=== PATIENT | female | born 1955 | race Caucasian/White ===

== ENCOUNTER → 2020-03-24 11:39 | Outpatient (CLI) | payer OTHER, SELFPAY ==
--- NOTE | 2020-03-24 14:51 | STRESSREP_ITS ---
Stress Test Report Date: 03/24/2020 Procedure: Exercise tolerance test Indications: Dyspnea on exertion Consent: Per the patient Procedure: The patient exercised on a Yobani protocol for 4 minutes and 59 seconds achieving a peak heart rate of 153 bpm (98 % predicted maximal heart rate) with a peak blood pressure 158/80 mmHg and a peak MET capacity of approximately 6.9 mET's. The baseline ECG demonstrated normal sinus rhythm. The peak exercise ECG demonstrated upsloping ST depressions in the inferior and lateral leads which is not diagnostic of ischemia. Patient did not have significant ischemic changes. [There were no cardiac dysrhythmias pretest, during exercise, or recovery]. The functional capacity was considered average for age. The patient had no complaint of chest discomfort during exercise or recovery. The examination was discontinued secondary to shortness of breath. Impression: 1. Technically adequate (percent predicted maximal heart rate greater than 85%) exercise tolerance test 2. Stress test is negative for exercise-induced chest pain. 3. Stress test test is negative for exercise-induced EKG changes of ischemia. 4. Functional capacity is average for age This note was generated with MyRepublic[employer] software. It may contain incorrect words, spelling, and punctuation that were not noted in checking the note before signing.
== END ==
PROVIDERS: PCP Family Medicine; Referring Provider Family Medicine; Visit Provider Family Medicine
DX: R06.09 Other forms of dyspnea (principal)
CPT/HCPCS: 93017

== ENCOUNTER → 2021-08-17 07:31 | Outpatient (CLI) | payer MEDICARE, OTHER, SELFPAY ==
--- NOTE | 2021-08-17 07:40 | RAD_ITS ---
INDICATION: DYSPHAGIA GERD EXAMINATION/TECHNIQUE: oral contrast and gas bubbles were administered to the patient. Total Fluoroscopic Time: 111 seconds. number of Fluoroscopic Images: 18 Radiation dosage index: 32.91 mGy COMPARISON: None. FINDINGS: No masses or strictures are identified. There is no hiatal hernia. The mucosal pattern is unremarkable. There is normal motility. Mild to moderate gastroesophageal reflux was elicited. RAD/Esophagus Single Contrast IMPRESSION: Unremarkable esophageal structure and function. Mild to moderate gastroesophageal reflux was elicited. Electronically Signed: Terrence Ferrell MD at 8:31 EST Tel , Service support ,
== END ==
PROVIDERS: PCP Family Medicine; Referring Provider Otolaryngology; Visit Provider Otolaryngology
DX: R13.10 Dysphagia, unspecified (principal); K21.9 Gastro-esophageal reflux disease without esophagitis
CPT/HCPCS: 74220

== ENCOUNTER → 2023-11-22 | Outpatient (CLI) | payer MEDICARE, OTHER, SELFPAY ==
--- NOTE | 2023-11-22 | CYSPIN_PTH ---
PATIENT: ALANNAH HALL LOC: [facility] U#:[id number] AGE/SX: 68/F ROOM: RE11/22/[address]: Dr. Brook Sauceda MD : 1955 BED: DIS: 11/22/2023 SPEC #: [id number] RECD: 11/25/23 10:11 STATUS: AMADA COREY #: [id number] AUDELIA: 11/22/23 00:[address]: Brook Sauceda DEPT: CYTOLOGY RECD BY: Mikhail Shannon ENTERED: 11/25/23 10:12 SP TYPE: CYSPIN FL OTHR DR: Dr. Brenden Kapadia MD Tissues: Urine Procedures: Pap Stain (control) Special Stain Group II Cytospin Fluid HEADER OPERATION: Not noted PRE-OP DIAGNOSIS: Gross hematuria TISSUE SUBMITTED: Urine for cytology DIAGNOSIS CYTOLOGY Urine for cytology (cytospin): Negative for high-grade urothelial carcinoma (NHGUC), Genevieve System Category II. /mr 11/25/23 COMMENT The Genevieve System for urine cytology diagnostic categorization was used in the evaluation of this case. CYTOLOGY STUDY Slides are reviewed. CYTOLOGY GROSS Received is 40 ml of gold cloudy fluid labeled with the patient's name and and designated per the requisition as urine. Submitted for cytology preparation. mr 11/25/23 TC:4 CPT: 46605
[2023-11-26 10:33] LABS: Cytology, Body Fluid / CSF SEE PATH REPORT
== END | disposition home or self-care (01) ==
PROVIDERS: PCP Family Medicine; Referring Provider Urology; Visit Provider Urology
DX: R31.0 Gross hematuria (principal)
CPT/HCPCS: 88108; 88313

== ENCOUNTER → 2024-10-09 | Outpatient (CLI) | payer MEDICARE, OTHER, SELFPAY ==
[2024-10-09 10:14] LABS: Absolute Lymphocyte Count 1.76 X10^3/uL (0.83-4.51); Absolute Neutrophil Count 4.3 X10^3/uL (2.0-7.7); Basophil# 0.05 X10^3/uL; Basophil% 0.7 % (0-1); Eosinophils% 2.9 % (0-5); Hematocrit 43.3 % (37-47); Hemoglobin 14.3 g/dL (12.0-15.0); Lymphocyte # 1.76 X10^3/ul (0.83-4.51); Lymphocyte % 25.8 % (19-41); Mean Corpuscular Hgb 29.5 pg (27.0-32.0); Mean Corpuscular Volume 89.5 fL (81-99); Mean Platelet Vol. 9.7 fl (6.2-12.0); Monocyte# 0.47 X10^3/uL; Monocyte% 6.9 % (0-10); NRBC Flagged by Analyzer 0 % (0-5); Neutrophil # 4.31 X10^3/uL (2.7-7.7); Neutrophil % 63.1 % (47-70); Platelet Count 272 K/mm3 (150-450); RBC Distribution Width CV 12.3 % (11.6-14.6); RBC Distribution Width SD 40.7 fl (35.1-43.9); Red Blood Count 4.84 M/mm3 (4.2-5.4); White Blood Count 6.8 K/mm3 (4.4-11.0)
[2024-10-09 10:44] LABS: Hemoglobin A1c 5.7 % (3.8-5.6)
[2024-10-09 11:00] LABS: ALB/GLOB Ratio 0.9 RATIO (0.9-2.4); AST(SGOT) 18 U/L (15-37); Alanine Aminotransfer ALT/SGPT 25 U/L (13-56); Albumin, Serum 3.6 g/dL (3.2-5.0); Alkaline Phosphatase 87 U/L (45-117); Anion Gap 7 (5-15); BUN 11 mg/dL (7-18); BUN/Creat Ratio 14.1 RATIO (10-20); Calcium,Total 9.1 mg/dL (8.5-10.1); Chloride 106 mmol/L (98-107); Cholesterol 223 mg/dL (200); Creatinine, Serum 0.78 mg/dL (0.55-1.02); EST Glomerular Filtration Rate 78 mL/min (>60); Est Glom Filt Rate - Afr Amer 94 mL/min (>60); Globulin 3.8 g/dL (2.2-4.2); Glucose 99 mg/dL (74-106); High Density Lipoprotein 68 mg/dL; Potassium 3.9 mmol/L (3.5-5.1); Protein, Total 7.4 g/dL (6.4-8.2); Sodium Level 139 mmol/L (136-145); Triglycerides 130 mg/dL; Very Low Density Lipoprotein 26 mg/dL (5-40)
== END | disposition home or self-care (01) ==
LOC: MFPLAB 08:16
PROVIDERS: PCP Family Medicine; Referring Provider Family Medicine; Visit Provider Family Medicine
DX: R73.02 Impaired glucose tolerance (oral) (principal); E78.5 Hyperlipidemia, unspecified
CPT/HCPCS: 36415; 80053; 80061; 83036; 84443; 85025

== ENCOUNTER → 2024-11-19 | Outpatient (CLI) | payer MEDICARE, OTHER, SELFPAY ==
--- NOTE | 2024-11-19 09:30 | RAD_ITS ---
PROCEDURE: CALCANEUS MIN 2 VIEWS 11/19/2024 REASON FOR EXAM: HEEL PAIN TECHNIQUE: Two views of the left calcaneus (os calcis). COMPARISON: None available FINDINGS: Normal bone mineralization. No evidence of fracture. No focal osseous lesion. Very mild enthesopathic change at the Achilles and plantar surfaces of the calcaneus. Subtalar joint is unremarkable. Alignment is preserved. Soft tissues are unremarkable. No radiopaque foreign body identified. RAD/Calcaneus min 2 Views IMPRESSION: No fracture.. Reading Location: [id number]
== END | disposition home or self-care (01) ==
LOC: MTRAD 09:29
PROVIDERS: PCP Family Medicine; Referring Provider Family Medicine; Visit Provider Family Medicine
DX: M79.672 Pain in left foot (principal)
CPT/HCPCS: 73650

== ENCOUNTER → 2024-12-31 | Outpatient (CLI) | payer MEDICARE, OTHER, SELFPAY ==
--- NOTE | 2024-12-31 15:23 | RAD_ITS ---
PROCEDURE: CERV SPINE 4 OR 5 VIEWS 12/31/2024 REASON FOR EXAM: PAIN IN ARM TECHNIQUE: 6 views of the cervical spine. COMPARISON: None. FINDINGS: Vertebrae: The cervical vertebral bodies are normal in morphology, without evidence of fracture or collapse. There is no evidence of intrinsic bony lesion. On oblique projections the neural foramina are patent bilaterally throughout. disc spaces: Mild disc space narrowing at C3-4, C4-5 and C5-6. Alignment: There is slight grade 1 anterolisthesis of C2 on C3 and of C3 on C4. soft tissues: The prevertebral soft tissues are normal in thickness. There is no radiopaque foreign body. RAD/Cerv Spine 4 or 5 Views IMPRESSION: Disc degeneration is mild from C3-4 through C5-6. Slight grade 1 anterolisthesis of C2 on C3 and of C3 on C4. The study is otherwise within normal limits. There is no significant neural fo raminal stenosis. Reading Location: [facility]
== END | disposition home or self-care (01) ==
PROVIDERS: PCP Family Medicine
DX: M79.603 Pain in arm, unspecified (principal)
CPT/HCPCS: 72050

== ENCOUNTER 2025-01-25 08:00 | Outpatient (RCR) | payer MEDICARE, OTHER, SELFPAY ==
--- NOTE | 2025-01-12 10:09 | HP.PTEVAL ---
Patient's Visit Information Visit Information Visit Information: ALANNAH HALL is a 69 year old F referred to Physical Therapy by Dr. Darrian Rodrigues MD with a diagnosis of Disc Degeneration. Date of Evaluation: 01/12/25 Physical Therapist: CYNDI Elmore Visit Plan Frequency: 2x /Week Duration: 6 Weeks Plan: 2X/ week for 6 weeks for postural exercises, MT to the L side levator and upper trap, C-spine centralization of sx, strengthening of posture and L UE with HEP and modalities as needed HEP: corner stretch and shoulder rolls Subjective Subjective: Pt was just told that she had to come to PT. She went in because she had pain in her neck and L shoulder () and it was just getting worse. Currently her point finger on the L is numb. She would wake up with her hands numb. She has tried all the over the counter drugs and creams and nothing helps. The pain is not as strong as it was before but it is still there. It is affecting her working in the garden and twice her L elbow has collapsed putting weight through it. The Lidocaine patches but she can not put it on all the time. Pain Neck pain: Pain Intensity (Out of 10): 0 L shoulder pain: Pain Intensity (Out of 10): 2 L fingers: Pain Intensity (Out of 10): 2 Objective Objective: R handed: R 55# and L 32# Bicep reflex 2+/3 B C-spine AROM: flex 100%, Rot R 75% and Rot L 75%, Ext 10%, SB B 50%increase pain to the L UE AROM: Full UE AROM UE MMT: R shoulder flex B 4/5 and L 4-/5 R shoulder ER 4/5 and L 4-/5 R shoulder IR 4/5 and L 4-/4 Posture: rounded shoulders Palpation: tender levator and upper trap on the L (knot felt) Seated chin tucks... immed increase in L shoulder blade Supine chin tucks with trial of 1 and 2 towel rolls...immed increase in L shoulder blade and neck pain Seated repeated SB to the L increased L side of neck and shoulder pain Supine manual repeated SB to the R decreased overall shoulder blade pain Pt tight in pecs Balance/Special Test Scores Oswestry Low Back Score: 12 Goals Goal 1:: I HEP Goal Time Frame: 6-8 Weeks Goal 2:: Decrease overall neck and L arm pain by 50% Goal Time Frame: 6-8 Weeks Goal 3:: Sit with upright posture during treatment sessions Goal Time Frame: 6-8 Weeks Goal 4:: Abolish waking up with L arm numbness Goal Time Frame: 6-8 Weeks Rehabilitation Potential Rehabilitation Potential: Good Anticipated Interventions Patient/Client Instruction: Educate patient on: Condition and Plan of Care For the Purpose of:: To decrease pain, To increase ROM, To improve nutrient delivery to tissue, To improve muscle performance and motor function, To improve ability to perform ADL's, To increase tolerance to activity/condition/position, To improve performance and independence with ADL's, To improve health of tissue and To decrease soft tissue restriction Therapeutic Exercise to Include: Strength training, Postural training, Flexibilty training, Neuromotor development, Passive ROM, Active ROM and Scapular Strength/Stabilization For the Purpose of:: To decrease pain, To increase ROM, To improve nutrient delivery to tissue, To improve muscle performance and motor function, To improve ability to perform ADL's, To improve performance and independence with ADL's, To decrease level of supervision to perform tasks, To improve health of tissue, To decrease soft tissue restriction and To increase flexibility/ROM Manual Therapy Techniques to Include: Passive ROM and Soft tissue mobilization For the Purpose of:: To decrease pain, To improve nutrient delivery to tissue, To improve muscle performance and motor function, To improve ability to perform ADL's, To improve health of tissue, To decrease soft tissue restriction and To increase flexibility/ROM Cryotherapy (ice pack, ice massage): Yes Thermo therapy (hot pack): Yes Ultrasound (thermal/non thermal): Yes For the Purpose of:: To decrease pain, To increase ROM, To improve nutrient delivery to tissue, To improve muscle performance and motor function and To improve ability to perform ADL's Text: Thank you for the opportunity to evaluate your patient. For Medicare and Medicare HMO plans, please review the plan of care and approve it. It will need to be FAXED BACK to us at [phone] for Medicare purposes. For Medicare only, by signing this I certify the plan of care. Please let me know if there are questions or concerns regarding this plan of care. Physician Signature: Date:
--- NOTE | 2025-02-03 08:14 | HP.PT.NRP ---
Patient Information Patient Information: ALANNAH HALL was seen in my office for initial evaluation on 01/12/25. The following Plan of Care was established for this patient: POC Established Initial Frequency: 2x /Week Initial Duration: 6 Weeks Anticipated Interventions Patient/Client Instruction: Educate patient on: Condition and Plan of Care For the Purpose of:: To decrease pain, To increase ROM, To improve nutrient delivery to tissue, To improve muscle performance and motor function, To improve ability to perform ADL's, To increase tolerance to activity/condition/position, To improve performance and independence with ADL's, To improve health of tissue and To decrease soft tissue restriction Therapeutic Exercise to Include: Strength training, Postural training, Flexibilty training, Neuromotor development, Passive ROM, Active ROM and Scapular Strength/Stabilization For the Purpose of:: To decrease pain, To increase ROM, To improve nutrient delivery to tissue, To improve muscle performance and motor function, To improve ability to perform ADL's, To improve performance and independence with ADL's, To decrease level of supervision to perform tasks, To improve health of tissue, To decrease soft tissue restriction and To increase flexibility/ROM Manual Therapy Techniques to Include: Passive ROM and Soft tissue mobilization For the Purpose of:: To decrease pain, To improve nutrient delivery to tissue, To improve muscle performance and motor function, To improve ability to perform ADL's, To improve health of tissue, To decrease soft tissue restriction and To increase flexibility/ROM Cryotherapy (ice pack, ice massage): Yes Thermo therapy (hot pack): Yes Ultrasound (thermal/non thermal): Yes For the Purpose of:: To decrease pain, To increase ROM, To improve nutrient delivery to tissue, To improve muscle performance and motor function and To improve ability to perform ADL's Last Seen Last Seen: This patient was last seen in our office 01/25/25. Pertinent comments regarding their Physical therapy will appear below: DC PT as pt is getting and MRI and EMG At this point I will be discontinuing this patient from physical therapy. I would be happy to see this patient again in the future if found appropriate by the physician. Thank you! Patrica Paris, MPT Balance/Gait/Functional tests Balance/Special Test Scores Oswestry Low Back Score: 12
== END 2025-01-25 19:00 | disposition home or self-care (01) ==
LOC: PT 08:00
PROVIDERS: PCP Family Medicine; Referring Provider Family Medicine; Visit Provider Family Medicine
DX: M50.30 Other cervical disc degeneration, unspecified cervical region (principal)
CPT/HCPCS: 97035; 97140; 97162

== ENCOUNTER → 2025-02-18 | Outpatient (CLI) | payer MEDICARE, OTHER, SELFPAY | END | disposition home or self-care (01) | LOC: MRI 15:12 | PROVIDERS: PCP Family Medicine; Referring Provider Family Medicine; Visit Provider Family Medicine | DX: G56.20 Lesion of ulnar nerve, unspecified upper limb (principal) | CPT/HCPCS: 72141 ==

== ENCOUNTER → 2025-04-21 | Outpatient (CLI) | payer MEDICARE, OTHER, SELFPAY ==
--- NOTE | 2025-04-21 15:08 | NEURO ---
NCS and/or EMG Patient Report Ordering Doctor: Darrian Rodrigues DATE OF SERVICE: 04/21/25 Toma presents with complaints of a pins and needle sensation in the left upper arm Electrodiagnostic findings: Left median motor nerve demonstrates normal distal latency and amplitude with reduced conduction velocity. Right median motor response within normal limits ulnar motor response normal bilaterally. Normal median and ulnar F?waves. Sensory responses were within normal limits. Needle EMG testing was performed upper limbs. 1+ complex repetitive discharges and polyphasic motor units noted in the left deltoid. Electrodiagnostic impression: This is an abnormal study. 1. Electrodiagnostic findings suggestive of chronic left C5 radiculopathy. 2. No electrodiagnostic evidence for peripheral neuropathy, including carpal tunnel syndrome Multi Select Codes Neurology Neurology Interp Codes: 33132-75 Musc test done w/n test comp (interp) (2) and 31452-98 Nrv cndj test 13/> studies (interp)
== END | disposition home or self-care (01) ==
LOC: PSN 13:33
PROVIDERS: PCP Family Medicine; Referring Provider Family Medicine; Visit Provider Family Medicine
DX: G56.23 Lesion of ulnar nerve, bilateral upper limbs (principal); R20.0 Anesthesia of skin
CPT/HCPCS: 95886; 95913

== ENCOUNTER → 2025-06-18 | Outpatient (CLI) | payer MEDICARE, OTHER, SELFPAY ==
[2025-06-18 10:35] LABS: Hematocrit 42.7 % (37-47); Hemoglobin 14.3 g/dL (12.0-15.0); Immature Granulocytes Count 0.040 X10^3/uL (0.0-0.0); Mean Corp Hgb Conc 33.5 g/dL (32-36); Mean Corpuscular Volume 88.0 fL (81-99); Mean Platelet Vol. 9.7 fl (6.2-12.0); NRBC Flagged by Analyzer 0 % (0-5); Platelet Count 263 K/mm3 (150-450); RBC Distribution Width CV 12.5 % (11.6-14.6); RBC Distribution Width SD 40.2 fl (35.1-43.9); Red Blood Count 4.85 M/mm3 (4.2-5.4); White Blood Count 6.3 K/mm3 (4.4-11.0)
[2025-06-18 11:06] LABS: AST(SGOT) 27 U/L (<=31); Alanine Aminotransfer ALT/SGPT 29 U/L (<=34); Albumin, Serum 4.2 g/dL (3.4-4.8); Alkaline Phosphatase 81 U/L (35-104); Anion Gap 9 (5-15); BUN 13 mg/dL (4-19); BUN/Creat Ratio 17.5 RATIO (10-20); Calcium,Total 9.4 mg/dL (7.6-11.0); Carbon Dioxide 24.9 mmol/L (21.0-32.0); Chloride 106 mmol/L (98-108); Cholesterol 233 mg/dL (<=200); Globulin 2.7 g/dL (2.2-4.2); Glucose 110 mg/dL (70-99); Low Density Lipoprotein Calc. 136 mg/dL; Potassium 4.5 mmol/L (3.3-5.1); Triglycerides 172 mg/dL; Very Low Density Lipoprotein 34 mg/dL (5-40); cholesterol:hdl ratio screen 3.48
== END | disposition home or self-care (01) ==
LOC: MFPLAB 08:05
PROVIDERS: PCP Family Medicine; Visit Provider Family Medicine
DX: E78.5 Hyperlipidemia, unspecified (principal); R73.02 Impaired glucose tolerance (oral)
CPT/HCPCS: 36415; 80053; 80061; 83036; 85025